=== PATIENT | female | born 1975 ===

== ENCOUNTER 2019-07-05 01:40 | Emergency (ER) | payer SELFPAY ==
[2019-07-05 01:52] VITALS: BP 147/84
[2019-07-05] MEDS ORDERED: ALUM-MAG HYDROXIDE-SIMETHICONE 200-200-20MG/5ML ORAL LIQD 30 ML PO ONE (02:00)
[2019-07-05] MEDS ORDERED: FAMOTIDINE 20 MG TAB PO ONE (02:00)
[2019-07-05] MEDS ORDERED: LIDOCAINE VISCOUS 2% 15 ML ORAL LIQD PO ONE (02:00)
[2019-07-05] MEDS ORDERED: ONDANSETRON 4 MG ODT TAB ONE (02:08)
[2019-07-05] MEDS ORDERED: ONDANSETRON 4 MG ODT TAB PO ONE (02:13)
--- NOTE | 2019-07-05 02:13 | Emergency Department Report ---
ED Abdominal Pain HPI - General Chief Complaint: Abdominal Pain Stated Complaint: ABDOMINAL PAIN Time Seen by Provider: 07/05/19 01:59 Source: patient, EMS Mode of arrival: Stretcher Limitations: Language Barrier - History of Present Illness Initial Comments: Patient is a 43-year-old female that presents emergency room with complaints of epigastric pain. Patient states her pain started at 1 AM. Patient states she is had bouts of gastritis and acid reflux for 5 months. Patient states she has been managing it with diet. Patient states she has had pain couple times a week for the last 5 months. Patient states is intermittent. Patient states this time at 1 AM a came back worse than ever. Patient states the pain is a 10 out of 10. Patient states his better with rest and worse with movement. Patient states he is having a lot of burping and gas pain. Patient states she has abdominal distention. Patient denies nausea and vomiting. Patient states she took ibuprofen for the pain. Patient states the ibuprofen made it worse. Patient states she was recently diagnosed with H. pylori by her primary care but has not received the treatment yet. MD Complaint: abdominal pain -: Sudden Location: epigastric Radiation: none Migration to: no migration Severity: severe Severity scale (0 -10): 10 Quality: burning Consistency: constant Improves With: eating, rest Worsens With: movement Associated Symptoms: denies: nausea, vomiting, diarrhea, fever, chills, constipation, dysuria, hematemesis, hematochezia, melena, hematuria, anorexia, syncope - Related Data LMP (females 10-50): last week Previous Rx's Medication Instructions Recorded Last Taken Type Esomeprazole Magnesium [NexIUM] 40 mg PO QDAY #30 capsule. 07/05/19 Unknown Rx Allergies Allergy/AdvReac Type Severity Reaction Status Date / Time No Known Allergies Allergy Unverified 07/05/19 01:53 ED Review of Systems ROS: Stated complaint: ABDOMINAL PAIN Other details as noted in HPI Constitutional: denies: chills, fever Eyes: denies: eye pain, eye discharge, vision change ENT: denies: ear pain, throat pain Respiratory: denies: cough, shortness of breath, wheezing Cardiovascular: denies: chest pain, palpitations Endocrine: no symptoms reported Gastrointestinal: as per HPI, abdominal pain, other. denies: nausea, diarrhea Genitourinary: denies: urgency, dysuria, discharge Musculoskeletal: denies: back pain, joint swelling, arthralgia Skin: denies: rash, lesions Neurological: denies: headache, weakness, paresthesias Psychiatric: denies: anxiety, depression Hematological/Lymphatic: denies: easy bleeding, easy bruising ED Past Medical Hx - Past Medical History Previous Medical History?: No Hx GERD: Yes Additional medical history: GERD - Surgical History Past Surgical History?: No - Social History Smoking Status: Never Smoker Substance Use Type: None - Medications Home Medications: Home Medications Medication Instructions Recorded Confirmed Last Taken Type Esomeprazole Magnesium [NexIUM] 40 mg PO QDAY #30 capsule. 07/05/19 Unknown Rx ED Physical Exam - General Limitations: Language Barrier General appearance: alert, in no apparent distress - Head Head exam: Present: atraumatic, normocephalic - Eye Eye exam: Present: normal appearance - ENT ENT exam: Present: mucous membranes moist - Neck Neck exam: Present: normal inspection - Respiratory Respiratory exam: Present: normal lung sounds bilaterally. Absent: respiratory distress - Cardiovascular Cardiovascular Exam: Present: regular rate, normal rhythm. Absent: systolic murmur, diastolic murmur, rubs, gallop - GI/Abdominal GI/Abdominal exam: Present: soft, tenderness (Epigastric tenderness), normal bowel sounds - Extremities Exam Extremities exam: Present: normal inspection - Back Exam Back exam: Present: normal inspection - Neurological Exam Neurological exam: Present: alert, oriented X3 - Psychiatric Psychiatric exam: Present: normal affect, normal mood - Skin Skin exam: Present: warm, dry, intact, normal color. Absent: rash ED Course Vital Signs 07/05/19 01:50 Temperature 98.4 F Pulse Rate 83 Respiratory 20 Rate Blood Pressure 147/84 O2 Sat by Pulse 98 Oximetry - Reevaluation(s) Reevaluation #1: Initial evaluation done. Patient will be given Zofran to prevent vomiting patient also be given a GI cocktail and Pepcid 07/05/19 02:03 Reevaluation #2: Patient symptoms have improved. Patient states she is feeling better. Patient tolerated medicines. I discussed all clinical findings with patient. I discussed plan of care with patient. Patient agrees with plan of care. Patient is stable for discharge. Patient will be discharged home. Patient given discharge instructions. Patient voiced understanding of discharge instructions. 07/05/19 02:20 ED Medical Decision Making - Medical Decision Making Patient is a 43-year-old female that presents emergency room with complaints of epigastric pain. Patient has a long history of acid reflux and gastritis. Patient's clinical findings are consistent with gastritis and GERD. Patient given Zofran, GI cocktail, Pepcid in the ER and patient responded well. Patient was essentially asymptomatic prior to discharge. Patient given a prescription for Nexium. Patient does not require further emergency medical evaluation. - Differential Diagnosis Gastritis, GERD, acid reflux, abdominal pain Critical care attestation.: If time is entered above; I have spent that time in minutes in the direct care of this critically ill patient, excluding procedure time. ED Disposition Clinical Impression: Epigastric pain Gastritis Qualifiers: Gastritis type: unspecified gastritis Chronicity: acute Gastritis bleeding: without bleeding Qualified Code(s): K29.00 - Acute gastritis without bleeding GERD (gastroesophageal reflux disease) Qualifiers: Esophagitis presence: with esophagitis Qualified Code(s): K21.0 - Gastro- esophageal reflux disease with esophagitis Disposition: TO HOME OR SELFCARE Is pt being admited?: No Does the pt Need Aspirin: No Condition: Stable Instructions: Abdominal Pain (ED), Diet for Ulcers and Gastritis (ED), Gastritis (ED) Additional Instructions: Patient to follow-up with primary care in 2 to 3 days. Patient to follow-up with gastroenterology in 2 to 3 days. Patient to rest. Patient to increase water. Patient to eat a acid reflux and gastritis diet. Patient to take Tylenol as needed for pain. Patient to take meds as directed. Patient to return to the ER if condition worsens, changes or new symptoms arise. Prescriptions: Esomeprazole Magnesium [NexIUM] 40 mg PO QDAY #30 capsule. Referrals: HARRIET ERVIN MD [Staff Physician] - 2-3 Days Time of Disposition: 02:15 Print Language: TELUGU
== END 2019-07-05 02:32 | disposition home or self-care (01) ==
LOC: ED 01:40
DX: K21.9 Gastro-esophageal reflux disease without esophagitis (principal); K29.70 Gastritis, unspecified, without bleeding; R10.13 Epigastric pain; Z79.899 Other long term (current) drug therapy
CPT/HCPCS: Q0162